=== PATIENT | female | born 1935 | race Two or more races ===

== ENCOUNTER 2016-10-30 11:53 | Emergency (ER) | payer MEDICARE, OTHER ==
[~2016-10-30] VITALS: Ht 157.5 cm; Wt 47.2 kg
--- NOTE | 2016-10-30 12:51 | NUR ---
RFA #20 IV ACCESS. BLOOD SAMPLE COLLECTED SENT TO LAB
[2016-10-30] MEDS ORDERED: IV NS 0.9% 1,000 ML ONE (12:53)
[2016-10-30] MEDS ORDERED: IV SET PRIMARY PUMP SET 1 EA INFUS.SET MC ONE (12:53)
[2016-10-30] MEDS ORDERED: ONDANSETRON HCL/PF 4 MG/2 ML VIAL ONE (12:53)
[2016-10-30 12:56] LABS: BASOPHILS # (AUTO) 0.1 /CMM (0.0-0.2); BASOPHILS % (AUTO) 0.8 % (0.0-2.0); EOSINOPHILS # (AUTO) 0.1 /CMM (0.0-0.7); EOSINOPHILS % (AUTO) 1.7 % (0.0-6.0); HEMATOCRIT 34 % (33-45); HEMOGLOBIN 11.6 g/dL (11.5-14.8); LYMPHOCYTES # (AUTO) 1.9 /CMM (0.8-4.8); LYMPHOCYTES % (AUTO) 28.7 % (20.0-44.0); MEAN CORPUSCULAR HEMOGLOBIN 30 PG (26.0-33.0); MEAN CORPUSCULAR HGB CONC 34 g/dl (31.0-36.0); MEAN CORPUSCULAR VOLUME 88 fL (82-100); MONOCYTES # (AUTO) 0.9 /CMM (0.1-1.30); MONOCYTES % (AUTO) 13.6 % (2.0-12.0); NEUTROPHILS # (AUTO) 3.7 /CMM (1.8-8.9); NEUTROPHILS % (AUTO) 55.2 % (43.0-81.0); PLATELET COUNT (AUTO) 299 /CMM (150-450); RDW COEFFICIENT OF VARIATION 12.2 (11.5-15.0); RED BLOOD CELL COUNT(AUTO) 3.89 MIL/uL (4.0-5.2); WHITE BLOOD COUNT (AUTO) 6.7 K/uL (4.3-11.0)
[2016-10-30] MEDS ORDERED: IV NS 0.9% 1,000 ML BAG IV ONE (13:00)
[2016-10-30] MEDS ORDERED: ONDANSETRON HCL/PF 4 MG/2 ML VIAL IVP ONE (13:00)
[2016-10-30 13:04] LABS: CALCIUM, SERUM 8.6 mg/dL (8.5-10.1); CARBON DIOXIDE 25 mmol/L (21-32); CHLORIDE 101 mmol/L (98-107); CREATININE 0.9 mg/dL (0.6-1.3); GLUCOSE 86 mg/dL (74-106); POTASSIUM 4.3 mmol/L (3.5-5.1); SODIUM SERUM 135 mmol/L (136-145); UREA NITROGEN, BLOOD 18 mg/dL (7-18)
[2016-10-30 13:09] LABS: ALANINE AMINOTRANSFERASE 17 U/L (12-78); ALBUMIN 3.5 g/dL (3.4-5.0); ALKALINE PHOSPHATASE 40 U/L (46-116); ASPARTATE AMINOTRANSFERASE 25 U/L (15-37); BILIRUBIN,DIRECT 0.1 mg/dL (0.0-0.2); BILIRUBIN,TOTAL 0.6 mg/dL (0.2-1.0); LIPASE 85 U/L (73-393); TOTAL PROTEIN, SERUM 7.3 g/dL (6.4-8.2)
--- NOTE | 2016-10-30 13:09 | NUR ---
CRANE MECHANIC AT BEDSIDE
[2016-10-30 13:28] LABS: APPEARANCE,URINE Clear (CLEAR); BILIRUBIN,URINE SMALL (NEGATIVE); BLOOD, URINE Trace-intact Ery/uL (NEGATIVE); COLOR,URINE Yellow (YELLOW); KETONES,URINE 15 (NEGATIVE); LEUKOCYTE ESTERASE ,URINE Trace (NEGATIVE); NITRITE, URINE Negative (NEGATIVE); PH,URINE 5.5 (5.0-8.0); PROTEIN,URINE Trace mg/dl (NEGATIVE); UGLUCOSE Negative (NEGATIVE); UROBILINOGEN,URINE 0.2 EU/dL (0.2)
[2016-10-30 13:30] LABS: BACTERIA,URINE Rare /HPF (None Seen); SQUAMOUS EPITHELIAL CELL,UR Rare /HPF (None Seen)
--- NOTE | 2016-10-30 13:56 | NUR ---
CONTACTED SON, WILL BE HERE FOR MOTHER DISCHARGE IN 15 MIN
[2016-10-30 14:06] VITALS: BP 129/61
--- NOTE | 2016-10-30 14:07 | NUR ---
Patient discharged to home in stable condition. Written and verbal after care instructions given. Patient verbalizes understanding of instruction. IV removed. Catheter intact and site benign. Pressure and 4x4 applied to site. No bleeding noted. NAD NOTE DUPON DISCHARGE
== END 2016-10-30 14:07 | disposition home or self-care (01) ==
LOC: ER 11:54
DX: R11.2 Nausea with vomiting, unspecified (principal); I10 Essential (primary) hypertension
CPT/HCPCS: 36415; 76700; 80048; 80076; 81001; 83690; 85025; 96361; 96374; 99285; A4606; J2405; J7030; 81000-TC; Z7610

== ENCOUNTER 2019-02-14 02:18 | Inpatient (IN) | payer MEDICARE, OTHER ==
[~2019-02-14] VITALS: Ht 144.8 cm; Wt 50.8 kg
--- NOTE | 2019-02-14 02:20 | NUR ---
BIB EMS C/O GLF, GENERALIZED WEAKNESS, N/V/D. DENIES KO. PT AAOX3 NO ACUTE DISTRESS NOTED, RESP EVEN AND UNLABORED. PLACE PT ON CARDIAC MONITORING, CONTINUOUS POX. ER MD AT BEDSIDE TO EVAL PT WITH ORDERS RECEIVED. WILL CARRY OUT ORDERS.
[2019-02-14] MEDS ORDERED: ONDANSETRON HCL/PF 4 MG/2 ML VIAL ONE (02:26)
[2019-02-14] MEDS ORDERED: ONDANSETRON HCL/PF 4 MG/2 ML VIAL IVP ONE (02:30)
[2019-02-14] MEDS ORDERED: IV NS 0.9% 500 ML BAG IV ONE (02:30)
--- NOTE | 2019-02-14 02:30 | NUR ---
BLOOD DRAWN AND SENT TO LAB
--- NOTE | 2019-02-14 02:37 | NUR ---
PT MEDICATED ORDERED.
[2019-02-14 02:39] LABS: BASOPHILS # (AUTO) 0.1 /CMM (0.0-0.2); BASOPHILS % (AUTO) 0.5 % (0.0-2.0); EOSINOPHILS % (AUTO) 0.8 % (0.0-6.0); HEMATOCRIT 40 % (33-45); HEMOGLOBIN 13.5 g/dL (11.5-14.8); LYMPHOCYTES # (AUTO) 3.2 /CMM (0.8-4.8); LYMPHOCYTES % (AUTO) 20.2 % (20.0-44.0); MEAN CORPUSCULAR HGB CONC 33 g/dl (31.0-36.0); MEAN CORPUSCULAR VOLUME 91 fL (82-100); MONOCYTES # (AUTO) 1.5 /CMM (0.1-1.30); MONOCYTES % (AUTO) 9.4 % (2.0-12.0); NEUTROPHILS # (AUTO) 11.1 /CMM (1.8-8.9); NEUTROPHILS % (AUTO) 69.1 % (43.0-81.0); PLATELET COUNT (AUTO) 352 /CMM (150-450); RED BLOOD CELL COUNT(AUTO) 4.46 MIL/uL (4.0-5.2)
[2019-02-14 02:56] LABS: CALCIUM, SERUM 9.7 mg/dL (8.5-10.1); CARBON DIOXIDE 27 mmol/L (21-32); CHLORIDE 102 mmol/L (98-107); CREATININE 1.2 mg/dL (0.6-1.3); GLUCOSE 134 mg/dL (74-106); POTASSIUM 5.2 mmol/L (3.5-5.1); SODIUM SERUM 138 mmol/L (136-145); UREA NITROGEN, BLOOD 21 mg/dL (7-18)
[2019-02-14 03:03] LABS: ALANINE AMINOTRANSFERASE 11 U/L (12-78); ALBUMIN 3.7 g/dL (3.4-5.0); ALKALINE PHOSPHATASE 51 U/L (46-116); ASPARTATE AMINOTRANSFERASE 27 U/L (15-37); BILIRUBIN,DIRECT 0.1 mg/dL (0.0-0.2); BILIRUBIN,TOTAL 0.9 mg/dL (0.2-1.0); TOTAL PROTEIN, SERUM 8.2 g/dL (6.4-8.2)
--- NOTE | 2019-02-14 05:16 | NUR ---
URINE SAMPLE COLLECTED AND SENT TO LAB.
[2019-02-14 05:22] LABS: APPEARANCE,URINE Slightly Cloudy (CLEAR); BILIRUBIN,URINE SMALL (NEGATIVE); BLOOD, URINE Negative Ery/uL (NEGATIVE); COLOR,URINE Yellow (YELLOW); KETONES,URINE Trace (NEGATIVE); LEUKOCYTE ESTERASE ,URINE Small (NEGATIVE); NITRITE, URINE Positive (NEGATIVE); PH,URINE 8.5 (5.0-8.0); PROTEIN,URINE 30 mg/dl (NEGATIVE); UGLUCOSE Negative (NEGATIVE)
[2019-02-14 05:36] LABS: BACTERIA,URINE Few /HPF (None Seen); SQUAMOUS EPITHELIAL CELL,UR Few /HPF (None Seen); WBC,URINE TOO NUMEROUS TO COUN /HPF (0-3)
[2019-02-14] MEDS ORDERED: ACETAMINOPHEN 325 MG TABLET PO PRN (06:00)
[2019-02-14] MEDS ORDERED: ONDANSETRON HCL/PF 4 MG/2 ML VIAL IVP PRN (06:00)
[2019-02-14] MEDS ORDERED: MAGNESIUM HYDROXIDE 30 ML UDC PO PRN (06:00)
[2019-02-14] MEDS ORDERED: MAG HYDROX/AL HYDROX/SIMETH 30 ML UDC PO PRN (06:00)
[2019-02-14] MEDS ORDERED: Z GUARD REMEDY 2 OZ OINT TP PRN (06:00)
[2019-02-14] MEDS ORDERED: HYDROCODONE/APAP 5/325MG 1 EACH TABLET PO PRN (06:00)
--- NOTE | 2019-02-14 06:26 | NUR ---
REPORT CALLED TO PAPER LATCHERNATHALY QUINTERO. WILL TRANSPORT PT VIA ACLS PROTOCOL.
--- NOTE | 2019-02-14 07:00 | NUR ---
RN OPENING NOTES PATIENT HAS BEEN BROUGHT TO THE UNIT VIA GURNEY FROM THE ED. SHE IS AN 83 YO FEMALE WHO CAME PRESENTED TO THE ED WITH COMPLAINTS OF N/V, WEAKNESS AND AN EPISODE OF SYNCOPE. SHE IS AOX1-2, FARSI SPEAKING, UNSTEADY GAIT BUT INSISTS ON AMBULATING. SHE IS ON RA, TOLERATING WELL. DENIES ANY PAIN OR DISCOMFORT AT THIS TIME. IV SITE ON R AC HAS BEEN DISLODGED, WILL REMOVE AND REPLACE. SKIN IS INTACT, NO WOUNDS NOTES. EYES PERRLA, LUNG SOUNDS CLEAR BILATERALLY. SAFETY MEASURES HAVE BEEN IMPLEMENTED, CALL LIGHT IS WITHIN REACH, BED IS IN LOWEST AND LOCKED POSITION, SIDE RAILS UP X2, WILL CONTINUE TO MONITOR FOR ANY CHANGES.
[2019-02-14 08:00] VITALS: BP 136/62
[2019-02-14] MEDS ORDERED: AZITHROMYCIN 500 MG in IV D5W 250 ML IV SCH (09:00)
[2019-02-14] MEDS: CEFTRIAXONE 1 G in IV D5W 50 ML IV SCH (09:00)
[2019-02-14] MEDS: ENOXAPARIN SODIUM 30 MG/0.3 ML DISP.SYRIN SQ SCH (09:51)
[2019-02-14 10:22] LABS: THYROID STIMULATING HORMONE 1.44 uIU/mL (0.358-3.74)
[2019-02-14] MEDS ORDERED: CHOL200026 PO (10:28)
[2019-02-14] MEDS ORDERED: VITA1TAB56 PO (10:28)
[2019-02-14] MEDS ORDERED: MAGN400T8 PO (10:28)
[2019-02-14] MEDS ORDERED: ACET-73 PO (10:28)
[2019-02-14] MEDS ORDERED: OLOP5DRO EACHEYE (10:28)
[2019-02-14] MEDS ORDERED: MEMA10TA PO (10:28)
[2019-02-14] MEDS ORDERED: DICL100G16 TP (10:28)
[2019-02-14] MEDS ORDERED: ERGO500040 PO (10:28)
[2019-02-14] MEDS ORDERED: ASPI-605 PO (10:28)
[2019-02-14] MEDS ORDERED: CYAN10006 IM (10:28)
[2019-02-14] MEDS ORDERED: MELO-107 PO (10:28)
[2019-02-14] MEDS ORDERED: ICOS1CAP PO (10:28)
[2019-02-14] MEDS ORDERED: DIPH50CA4 PO (10:28)
[2019-02-14] MEDS ORDERED: DENO60DI SQ (10:28)
[2019-02-14] MEDS ORDERED: IPRA0.2S49 NEB (10:28)
[2019-02-14] MEDS ORDERED: DONE5TAB34 PO (10:28)
[2019-02-14] MEDS ORDERED: SOLI10TA2 PO (10:29)
[2019-02-14] MEDS ORDERED: PRAV20TA4 PO (10:29)
[2019-02-14] MEDS ORDERED: OMEG1CAP55 PO (10:29)
[2019-02-14] MEDS ORDERED: PROP40TA7 PO (10:29)
[2019-02-14] MEDS ORDERED: MIRT15TA7 PO (10:30)
[2019-02-14] MEDS ORDERED: MULT1TAB73 PO (10:31)
[2019-02-14 12:00] VITALS: BP 105/42
[2019-02-14] MEDS: IV NS 0.9% 1,000 ML IV PRN (12:17)
[2019-02-14 16:00] VITALS: BP 110/68
[2019-02-14] MEDS ORDERED: Medication Not On Formulary EA (Cholecalciferol (Vitamin D3) (Vitamin D3) 50,000 UNIT) PO SCH (16:30)
[2019-02-14] MEDS ORDERED: Medication Not On Formulary EA (Denosumab (Prolia) 60 MG) SQ SCH (16:30)
[2019-02-14] MEDS ORDERED: ERGOCALCIFEROL (VITAMIN D 2) 50,000 UNIT CAPSULE PO SCH (16:30)
[2019-02-14] MEDS ORDERED: VITAMIN B COMPLEX PO SCH (16:30)
[2019-02-14] MEDS ORDERED: MISCELLANEOUS MED 1 EA EA PO PRN (16:30)
[2019-02-14] MEDS ORDERED: Medication Not On Formulary EA (Omega-3 Acid Ethyl Esters (Lovaza) 1 GM) PO SCH (17:00)
[2019-02-14] MEDS ORDERED: DICLOFENAC TOPICAL 100 GM GEL..GM. TP SCH (17:00)
[2019-02-14] MEDS: OXYBUTYNIN CHLORIDE 5 MG TABLET PO SCH (17:59)
[2019-02-14] MEDS: DOCUSATE SODIUM 250 MG CAPSULE PO SCH (18:22)
--- NOTE | 2019-02-14 19:54 | NUR ---
RN CLOSING NOTES PATIENT IS RESTING IN BED COMFORTABLY AT THIS TIME. SHE DENIES ANY PAIN OR DISCOMFORT AT THIS TIME. ALL THROUGHOUT THE DAY, PT AND HER FAMILY INSISTED ON HER WALKING TO THE BATHROOM, PT IS AN EXTREME FALL RISK AND WOULD NOT LISTEN TO MY NURSING JUDGEMENT. SHE REPORTS BEING CONSTIPATED, EVIDENCED BY HER MULTIPLE ATTEMPTS, COLACE WAS GIVEN TO HELP. SHE IS ON RA, TOLERATING WELL. NO ACUTE CHANGES OCCURRED THROUGHOUT THE DAY, VITAL SIGNS ARE STABLE, NEEDS HAVE BEEN MET. SAFETY MEASURES HAVE BEEN IMPLEMENTED, CALL LIGHT IS WITHIN REACH, BED IS IN LOWEST AND LOCKED POSITION, SIDE RAILS UP X2, PT HAS BEEN ENDORSED TO NIGHTSHIFT RN FOR CONTINUITY OF CARE.
[2019-02-14 20:00] VITALS: BP 107/34
[2019-02-14] MEDS ORDERED: IPRATROPIUM NEB FS 0.5 MG/2.5 ML AMPUL.NEB IH SCH (21:00)
[2019-02-14] MEDS: MIRTAZAPINE 15 MG TABLET PO SCH (21:17)
[2019-02-14] MEDS: DONEPEZIL 5 MG TABLET PO SCH (21:18)
[2019-02-14] MEDS: ATORVASTATIN 10 MG TABLET PO SCH (21:18)
[2019-02-14] MEDS: diphenhydrAMINE HCL 50 MG CAPSULE PO SCH (21:18)
[2019-02-14] MEDS: IPRATROPIUM NEB FS 0.5 MG/2.5 ML AMPUL.NEB NEB SCH (23:56)
[2019-02-15 00:04] VITALS: BP 157/51
[2019-02-15 04:03] VITALS: BP 147/63
[2019-02-15 06:22] LABS: BASOPHILS # (AUTO) 0.1 /CMM (0.0-0.2); BASOPHILS % (AUTO) 0.7 % (0.0-2.0); EOSINOPHILS % (AUTO) 1.5 % (0.0-6.0); HEMATOCRIT 36 % (33-45); LYMPHOCYTES # (AUTO) 3.3 /CMM (0.8-4.8); LYMPHOCYTES % (AUTO) 24.9 % (20.0-44.0); MEAN CORPUSCULAR HGB CONC 34 g/dl (31.0-36.0); MEAN CORPUSCULAR VOLUME 91 fL (82-100); MONOCYTES # (AUTO) 1.3 /CMM (0.1-1.30); MONOCYTES % (AUTO) 9.5 % (2.0-12.0); NEUTROPHILS # (AUTO) 8.5 /CMM (1.8-8.9); NEUTROPHILS % (AUTO) 63.4 % (43.0-81.0); PLATELET COUNT (AUTO) 274 /CMM (150-450); RED BLOOD CELL COUNT(AUTO) 3.92 MIL/uL (4.0-5.2); WHITE BLOOD COUNT (AUTO) 13.4 K/uL (4.3-11.0)
[2019-02-15 06:39] LABS: CHOLESTEROL 197 mg/dL (<200); HDL CHOLESTEROL 46 mg/dL (40-60); LDL 125 mg/dL (0-99); THYROID STIMULATING HORMONE 1.915 uIU/mL (0.358-3.74); TRIGLYCERIDES 123 mg/dL (30-150)
[2019-02-15 06:40] LABS: ALANINE AMINOTRANSFERASE 11 U/L (12-78); ALBUMIN 3.2 g/dL (3.4-5.0); ALKALINE PHOSPHATASE 44 U/L (46-116); ASPARTATE AMINOTRANSFERASE 14 U/L (15-37); CALCIUM, SERUM 8.7 mg/dL (8.5-10.1); CARBON DIOXIDE 30 mmol/L (21-32); CHLORIDE 105 mmol/L (98-107); GLUCOSE 97 mg/dL (74-106); PHOSPHORUS 2.6 mg/dL (2.5-4.9); SODIUM SERUM 140 mmol/L (136-145); TOTAL PROTEIN, SERUM 7.1 g/dL (6.4-8.2); UREA NITROGEN, BLOOD 20 mg/dL (7-18)
[2019-02-15 08:00] VITALS: BP 138/57
[2019-02-15] MEDS: CEFTRIAXONE 1 G in IV D5W 50 ML IV SCH (08:04)
[2019-02-15] MEDS: IPRATROPIUM NEB FS 0.5 MG/2.5 ML AMPUL.NEB NEB SCH ×2 (08:09→15:56)
[2019-02-15] MEDS: DOCUSATE SODIUM 250 MG CAPSULE PO SCH (08:40)
[2019-02-15] MEDS: MAGNESIUM OXIDE 400 MG TABLET PO SCH (08:41)
[2019-02-15] MEDS: MULTIVITAMINS,THERAGRAN 1 UDTAB TABLET PO SCH (08:41)
[2019-02-15] MEDS: MEMANTINE HCL 5 MG TABLET PO SCH (08:41)
[2019-02-15] MEDS: OXYBUTYNIN CHLORIDE 5 MG TABLET PO SCH ×3 (08:41→17:39)
[2019-02-15] MEDS: PROPRANOLOL HCL 40 MG TABLET PO SCH (08:42)
[2019-02-15] MEDS: ASPIRIN EC 81 MG TABLET.DR PO SCH (08:42)
[2019-02-15] MEDS: ENOXAPARIN SODIUM 30 MG/0.3 ML DISP.SYRIN SQ SCH (08:43)
[2019-02-15] MEDS: OLOPATADINE HCL 0.1% OPHTH BOTTLE EACHEYE SCH (08:50)
[2019-02-15] MEDS ORDERED: Medication Not On Formulary EA (Icosapent Ethyl (Vascepa) 1 GM) PO SCH (09:00)
[2019-02-15] MEDS ORDERED: PRAVASTATIN SODIUM 20 MG TABLET PO SCH (09:00)
[2019-02-15] MEDS ORDERED: IV NS 0.9% 1,000 ML IV PRN (09:45)
[2019-02-15 12:00] VITALS: BP 118/47
[2019-02-15] MEDS: IV NS 0.9% 1,000 ML IV PRN (13:00)
[2019-02-15 16:00] VITALS: BP_SYST 101; BP_SYST 118; BP_DIAS 47; BP_DIAS 51
--- NOTE | 2019-02-15 19:30 | NUR ---
PIECE MEAT TRIMMER NOTE RECEIVED PT A/0 X1 AND ANSWERS TO NAME. ON ROOM AIR AND SATURATING WELL. BREATHING REGULAR AND UNLABORED. TELE-SR. BED IN LOWEST POSITION AND LOCKED IN PLACE WITH BED ALARM ENABLED. CALL LIGHT WITHIN REACH. WILL MONITOR.
[2019-02-15 20:00] VITALS: BP 131/61
[2019-02-15] MEDS: ATORVASTATIN 10 MG TABLET PO SCH (21:52)
[2019-02-15] MEDS: DONEPEZIL 5 MG TABLET PO SCH (21:53)
[2019-02-15] MEDS: diphenhydrAMINE HCL 50 MG CAPSULE PO SCH (21:53)
[2019-02-15] MEDS: MIRTAZAPINE 15 MG TABLET PO SCH (21:53)
[2019-02-16] VITALS: BP 132/70
[2019-02-16] MEDS: IPRATROPIUM NEB FS 0.5 MG/2.5 ML AMPUL.NEB NEB SCH ×2 (00:05→08:14)
[2019-02-16 04:00] VITALS: BP 113/58
[2019-02-16 06:36] LABS: BASOPHILS # (AUTO) 0.1 /CMM (0.0-0.2); BASOPHILS % (AUTO) 0.9 % (0.0-2.0); EOSINOPHILS % (AUTO) 8.5 % (0.0-6.0); HEMATOCRIT 32 % (33-45); HEMOGLOBIN 10.7 g/dL (11.5-14.8); LYMPHOCYTES # (AUTO) 3.6 /CMM (0.8-4.8); LYMPHOCYTES % (AUTO) 40.7 % (20.0-44.0); MEAN CORPUSCULAR HGB CONC 34 g/dl (31.0-36.0); MEAN CORPUSCULAR VOLUME 92 fL (82-100); MONOCYTES # (AUTO) 1.1 /CMM (0.1-1.30); MONOCYTES % (AUTO) 12.6 % (2.0-12.0); NEUTROPHILS # (AUTO) 3.3 /CMM (1.8-8.9); NEUTROPHILS % (AUTO) 37.3 % (43.0-81.0); PLATELET COUNT (AUTO) 241 /CMM (150-450); RED BLOOD CELL COUNT(AUTO) 3.47 MIL/uL (4.0-5.2); WHITE BLOOD COUNT (AUTO) 8.8 K/uL (4.3-11.0)
--- NOTE | 2019-02-16 06:44 | NUR ---
TELE- RN NOTE PT REMAINED STABLE DURING SHIFT. NO DISTRESS NOTED. ALL NEEDS ATTENDED TO PROMPTLY. CALL LIGHT WITHIN REACH. WILL ENDORSE TO NEXT SHIFT FOR CONTINUITY OF CARE.
[2019-02-16 07:12] LABS: CALCIUM, SERUM 8.3 mg/dL (8.5-10.1); CREATININE 0.9 mg/dL (0.6-1.3); MAGNESIUM 2.1 mg/dL (1.8-2.4); PHOSPHORUS 3.4 mg/dL (2.5-4.9); POTASSIUM 3.9 mmol/L (3.5-5.1)
--- NOTE | 2019-02-16 07:30 | NUR ---
LAB SUPPORT TECH AM NOTES PATIENT IN BED, AOX1-2, FARSI SPEAKING, LITTLE [place], ON RA, NO SOB, NO RESPIRATORY DISTRESS, SINUS RHYTHM ON TELE MONITOR, DENIES ANY PAIN OR DISCOMFORT AT THIS TIME. IV SITE ON LEFT HAND G 22 FLUSHES WELL, SITE CLEAR, PT'S FAMILY REFUSED IV HYDRATION AT THIS TIME. ON CARDIAC DIET, SAFETY MEASURES HAVE BEEN IMPLEMENTED, CALL LIGHT IS WITHIN REACH, BED IS IN LOWEST AND LOCKED POSITION, SIDE RAILS UP X2, WILL CONTINUE TO MONITOR FOR ANY CHANGES.
[2019-02-16 08:00] VITALS: BP_SYST 114; BP_SYST 116; BP_DIAS 47; BP_DIAS 71
[2019-02-16 08:44] VITALS: BP_SYST 122; BP_SYST 125; BP_SYST 130; BP_DIAS 60; BP_DIAS 78
--- NOTE | 2019-02-16 08:48 | NUR ---
WOUND CARE CONSULT: PT HAS NEPHEW AT BEDSIDE WHO ADAMANTLY REFUSED SKIN ASSESSMENT AT THIS TIME. RECOMMENDATIONS MADE FOR SKIN PROTECTION. DISCUSSED WITH NURSING STAFF. WILL SEE PT PRN. Addendum: 02/16/19 at 0850 by CASE GUTIERREZ [facility] AIR[facility] TO BE PLACED WHEN AVAILABLE.
[2019-02-16] MEDS: CEFTRIAXONE 1 G in IV D5W 50 ML IV SCH (08:50)
[2019-02-16] MEDS: ASPIRIN EC 81 MG TABLET.DR PO SCH (08:51)
[2019-02-16] MEDS: OXYBUTYNIN CHLORIDE 5 MG TABLET PO SCH (08:51)
[2019-02-16] MEDS: MEMANTINE HCL 5 MG TABLET PO SCH (08:51)
[2019-02-16] MEDS: MAGNESIUM OXIDE 400 MG TABLET PO SCH (08:51)
[2019-02-16] MEDS: OLOPATADINE HCL 0.1% OPHTH BOTTLE EACHEYE SCH (08:51)
[2019-02-16] MEDS: MULTIVITAMINS,THERAGRAN 1 UDTAB TABLET PO SCH (08:51)
[2019-02-16] MEDS: DOCUSATE SODIUM 250 MG CAPSULE PO SCH (08:51)
[2019-02-16] MEDS: PROPRANOLOL HCL 40 MG TABLET PO SCH (08:54)
[2019-02-16] MEDS ORDERED: CEPH-570 PO (09:01)
[2019-02-16] MEDS: ENOXAPARIN SODIUM 30 MG/0.3 ML DISP.SYRIN SQ SCH (09:04)
--- NOTE | 2019-02-16 09:30 | NUR ---
RN NOTES DUE MEDS GIVEN
[2019-02-16 12:00] VITALS: BP 115/49
[2019-02-16 12:03] LABS: ABG BASE EXCESS 0.4 mmol/L; ABG OXYGEN SATURATION 92.6 % (92.0-98.5); ABG PCO2 41.7 mmHg (35.0-45.0); ABG PO2 64.4 mmHg (75.0-100.0); AaDO2 35.4 mmHg; COHb 0.2 % (0.5-1.5); MetHb 0.4 % (0.0-1.5); SITE, ABG Right Radial; VENT MODE, BG ROOM AIR
--- NOTE | 2019-02-16 12:30 | NUR ---
RN NOTES PATIENT DISCHARGED TO HOME TODAY PER MD IN STABLE CONDITION. PROVIDED DC INSTRUCTIONS, MED RECON LIST/PRESCRIPTION AND HEALTH TEACHINGS. PATIENT TO FOLLOW UP WITH PCP IN 1-2 WEEKS AND WILL MAKE OWN APPOINTMENT. IV ACCESS REMOVED. NO BLEEDING, DRESSING IN PLACE. BELONGINGS CHECKED AND RETURNED. ALL PAPERWORKS SIGNED. MED PRESCRIPTION COORDINATED WITH PT'S SON DELMYFELIX AND WILL TAKE CARE OF IT. ACCOMPANIED BY FLIGHT DIRECTOR AND FRED CAREGIVER TO LOBBY VIA WHEELCHAIR AND WILL BE TRANSPORTED TO HOME VIA PVT CAR.
== END 2019-02-16 14:05 | disposition home or self-care (01) | DRG 463 ==
LOC: ER 02:18 → TELE1 06:20
PROVIDERS: ADMIT Internal Medicine; ATTEND Internal Medicine
DX: N39.0 Urinary tract infection, site not specified (principal); N17.0 Acute kidney failure with tubular necrosis; G93.41 Metabolic encephalopathy; E87.2 Acidosis; E87.5 Hyperkalemia; R55 Syncope and collapse; F03.90 Unspecified dementia, unspecified severity, without behavioral disturbance, psychotic disturbance, mood disturbance, and anxiety; E78.5 Hyperlipidemia, unspecified; E86.0 Dehydration; R94.31 Abnormal electrocardiogram [ECG] [EKG]; R91.8 Other nonspecific abnormal finding of lung field; F09 Unspecified mental disorder due to known physiological condition; I10 Essential (primary) hypertension
CPT/HCPCS: 36415; 36600; 70450-TC; 71045-TC; 76700-TC; 80048-TC; 80053-TC; 80061-TC; 80076-TC; 81000-TC; 82803-TC; 83605-TC; 83735-TC; 84100-TC; 84439-TC; 84443-TC; 84484-TC; 85025-TC; 87040-TC; 87081-TC; 87086-TC; 93307-TC; 93880-TC; 97116-TC; 97530-TC; A6253; G0378; J0456; J0696; J1650; J2405; J7030; J7040; J7060; Q0163